=== PATIENT | male | born 1975 | race Caucasian/White ===

== ENCOUNTER 2016-06-13 11:33 | Emergency (ER) | payer BC, OTHER ==
[2016-06-13 13:00] VITALS: BP 151/94
--- NOTE | 2016-06-13 14:51 | UC ---
Lower Extremity/Ankle HPI - HPI Summary HPI Summary: complaint of right great toe pain after dropping a large peice of steel onto right great yesterday bleed a lot from atround toenail complaint of constant aching pain pain radiates into the 2nd toe sometimes movement increases the pain hasn't taken any medications for pain - History of Current Complaint Chief Complaint: UCLowerExtremity Stated Complaint: TOE INJURY Time Seen by Provider: 06/13/16 14:36 Hx Obtained From: Patient Aggravating Factor(s): Ambulation Alleviating Factor(s): Rest Able to Bear Weight: Yes Related History: Occupational Injury - Allergies/Home Medications Allergies/Adverse Reactions: Allergies Allergy/AdvReac Type Severity Reaction Status Date / Time No Known Allergies Allergy Verified 06/13/16 12:53 PMH/Surg Hx/FS Hx/Imm Hx Previously Healthy: Yes Endocrine History Of: Denies: Diabetes Cardiovascular History Of: Denies: Hypertension, Pacemaker/ICD Respiratory History Of: Denies: Asthma GI/ History Of: Denies: Renal Disease - Surgical History Surgical History: Yes Surgery Procedure, Year, and Place: R knee - Family History Known Family History: Positive: None Negative: Cardiac Disease, Hypertension, Diabetes - Social History Occupation: Employed Full-time Lives: With Family Alcohol Use: Weekly Alcohol Amount: 24 PER WEEK Substance Use Type: None Smoking Status (MU): Light Every Day Tobacco Smoker Type: Cigarettes Amount Used/How Often: 6 cigarettes daily Have You Smoked in the Last Year: Yes - Immunization History Most Recent Tetanus Shot: 11/2012 Review of Systems Constitutional: Negative Skin: Bruising - right grerat toe Eyes: Negative ENT: Negative Respiratory: Negative Cardiovascular: Negative Gastrointestinal: Negative Genitourinary: Negative Motor: Negative Neurovascular: Negative Musculoskeletal: Other: - right great toe Neurological: Negative Psychological: Negative All Other Systems Reviewed And Are Negative: Yes Physical Exam Triage Information Reviewed: Yes Appearance: No Pain Distress, Well-Nourished Vital Signs: Initial Vital Signs Temp 98.2 F 06/13/16 12:53 Pulse 83 06/13/16 12:53 Resp 16 06/13/16 12:53 BP 151/94 06/13/16 12:53 Pulse Ox 100 06/13/16 12:53 Vital Signs Reviewed: Yes Eyes: Positive: Conjunctiva Clear ENT: Positive: Pharynx normal, TMs normal. Negative: Nasal congestion Neck: Positive: No Lymphadenopathy Respiratory: Positive: Lungs clear, Normal breath sounds, No respiratory distress Cardiovascular: Positive: RRR, No Murmur Abdomen Description: Positive: Nontender, Soft Bowel Sounds: Positive: Present Musculoskeletal: Positive: Other: - right great toe- tenderness and edema throughout- open wound under toenail- able to bend toe no pain in metacarpals Neurological: Positive: Alert Psychological Exam: Normal Skin: Positive: Other - small abrasion underneath toenail toenail still attached in the middle Lower Extremity Course/Dx - Differential Dx/Diagnosis Differential Diagnosis/HQI/PQRI: Contusion, Fracture (Open), Sprain, Strain Provider Diagnoses: right great toe contusion, small abrasion Discharge - Discharge Plan Condition: Stable Disposition: HOME Prescriptions: Cephalexin CAP* [Keflex CAP*] 500 mg PO TID #30 cap Patient Education Materials: Foot Contusion (ED), Abrasion (ED) Referrals: Lalitha Magallon NP [Primary Care Provider] - Additional Instructions: Start antibiotic as directed Increase fluids and rest Take acetaminophen or ibuprofen for fever or pain Please review your discharge instructions. If your symptoms do not improve please call your primary care provider or return to urgent care Addendum entered and electronically signed by Lois Angeles NP 06/13/16 15:47: Addendum Addendum: discussed case and reviewed x-ray which is negative for fracture and dislocation with Dr Angeles Addendum entered and electronically signed by Tasneem Angeles MD 06/24/16 08:26: Addendum Addendum: dx: crush injury Addendum entered and electronically signed by Tasneem Angeles MD 06/26/16 22:19: Addendum Addendum: dx: crush injury Addendum entered and electronically signed by Tasneem Angeles MD 06/30/16 07:23: Addendum Addendum: xray toe negative; diagnosis: toe injury Addendum entered and electronically signed by Tasneem Angeles MD 06/30/16 07:24: Addendum Addendum: signed by
[2016-06-13] MEDS ORDERED: Ibuprofen TAB* 400 MG PO ONE (14:52)
--- NOTE | 2016-06-13 15:51 | RAD ---
HISTORY: Trauma to right toe COMPARISONS: None VIEWS: 3, Frontal, lateral, and oblique views of the first digit of the right foot FINDINGS: BONE DENSITY: Normal. BONES: There is no displaced fracture. JOINTS: There is mild osteoarthritis of the first MTP joint. ALIGNMENT: There is no dislocation. SOFT TISSUES: Unremarkable. OTHER FINDINGS: None. IMPRESSION: OSTEOARTHRITIS. NO ACUTE OSSEOUS INJURY. IF SYMPTOMS PERSIST, RECOMMEND REPEAT IMAGING.
--- NOTE | 2016-06-20 15:07 | PN ---
Progress Note - Progress Note Note: Update to medical evaluation Keflex was listed in home meds - I noticed a 06/13 urgent care visit for toe injury where the meds were given, and based on pill count, determined it would be appropriate to order another 3-4 days Keflex. Leon said it is feeling better and on examination (RT great toe) there is some apparent scab at the base of the nail, and coloration that appears physiologic.
[2016-06-20] MEDS ORDERED: Cephalexin CAP* 500 MG PO SCH (16:00)
== END 2016-06-13 15:52 | disposition home or self-care (01) ==
LOC: UCCORT 11:33
DX: S90.111A Contusion of right great toe without damage to nail, initial encounter (principal); F10.99 Alcohol use, unspecified with unspecified alcohol-induced disorder; F17.210 Nicotine dependence, cigarettes, uncomplicated; M19.071 Primary osteoarthritis, right ankle and foot; W20.8XXA Other cause of strike by thrown, projected or falling object, initial encounter; Y92.9 Unspecified place or not applicable; Y99.0 Civilian activity done for income or pay
CPT/HCPCS: 99213; A9270-GY; G0463

== ENCOUNTER 2016-06-20 01:02 | Inpatient (IN) | payer BC ==
[2016-06-20] MEDS ORDERED: LORazepam INJ* 2 MG/ML 1 ML VIAL ONE (01:14)
[2016-06-20] MEDS ORDERED: LORazepam INJ* 2 MG/ML 1 ML VIAL IM ONE (01:14)
[2016-06-20 01:33] LABS: Urine Bilirubin Negative (Negative); Urine Glucose 3+(>=500 mg/dL) (Negative); Urine Nitrite Negative (Negative)
[2016-06-20 01:43] LABS: Hematocrit 48 % (42-52); Hemoglobin 16.3 g/dl (14.0-18.0); Mean Corpuscular HGB Conc 34 g/dl (31-36); Mean Corpuscular Hemoglobin 30 pg (27-31); Mean Corpuscular Volume 89 fL (80-94); Mean Platelet Volume 7 um3 (7.4-10.4); Red Blood Count 5.44 10^6/ul (4.0-5.4); Red Cell Distribution Width 13 % (10.5-15); White Blood Count 15.7 10^3/ul (3.5-10.8)
[2016-06-20 01:49] LABS: Benzodiazepine Urine Screen None Detected (None Detect)
[2016-06-20 01:57] LABS: ALT 60 U/L (7-52); AST 60 U/L (13-39); Albumin 5.1 g/dL (3.2-5.2); Alkaline Phosphatase 86 U/L (34-104); Anion Gap 9 mmol/L (2-11); BUN/Creatinine Ratio 9.1 (8-20); Blood Urea Nitrogen 9 mg/dL (6-24); CO2 Carbon Dioxide 23 mmol/L (22-32); Chloride 96 mmol/L (101-111); EGFR African American 108.2 (>60); EGFR Non-African American 84.2 (>60); Glucose 113 mg/dL (70-100); Potassium 3.6 mmol/L (3.5-5.0); Sodium 128 mmol/L (133-145); Total Protein 8.1 g/dL (6.4-8.9)
[2016-06-20 03:32] LABS: Acetaminophen < 15 mcg/mL; Alcohol < 10 mg/dL (<10); Salicylate < 2.50 mg/dL (<30); TSH (Thyroid Stimulating Horm) 0.29 mcIU/mL (0.34-5.60)
--- NOTE | 2016-06-20 05:29 | ED ---
Aditya Villa Billy, scribed for Ace Christine MD on 06/20/16 at 0142 . Psychiatric Complaint - HPI Summary HPI Summary: Patient is a 41 year-old male coming to [facility] for [facility]. Per EMS, patient has SI tonight. However, here in the ED, patient does not respond to questions directly and is generally uncooperative. - History Of Current Complaint Chief Complaint: EDMentalHealth Time Seen by Provider: 06/20/16 01:14 Hx Obtained From: Patient Hx From Patient Unobtainable Due To: Other - vague and uncooperative Onset/Duration: Gradual Onset Timing: Constant Severity Initially: Moderate Severity Currently: Moderate Has Suicidal: Reports: Thoughts - Allergies/Home Medications Allergies/Adverse Reactions: Allergies Allergy/AdvReac Type Severity Reaction Status Date / Time No Known Allergies Allergy Verified 06/13/16 12:53 PMH/Surg Hx/FS Hx/Imm Hx Endocrine/Hematology History: Denies: Hx Diabetes Cardiovascular History: Denies: Hx Hypertension, Hx Pacemaker/ICD, Other Cardiovascular Problems/ Disorders Respiratory History: Denies: Hx Asthma, Other Respiratory Problems/Disorders GI History: Denies: Other GI Disorders History: Denies: Hx Renal Disease Musculoskeletal History: Denies: Other Musculoskeletal History Sensory History: Denies: Hx Contacts or Glasses, Hx Hearing Aid Opthamlomology History: Denies: Hx Contacts or Glasses Neurological History: Comment Only: Other Neuro Impairments/Disorders - ADD Psychiatric History: Denies: Hx Panic Disorder - Surgical History Surgery Procedure, Year, and Place: R knee Hx Anesthesia Reactions: No Infectious Disease History: No Infectious Disease History: Denies: Traveled Outside the [place] in Last 30 Days - Family History Known Family History: Negative: Cardiac Disease, Hypertension, Diabetes - Social History Alcohol Use: Weekly Alcohol Amount: 24 PER WEEK Substance Use Type: Reports: None Substance Use Comment - Amount & Last Used: meth Hx Tobacco Use: Yes Smoking Status (MU): Light Every Day Tobacco Smoker Type: Cigarettes Amount Used/How Often: 6 cigarettes daily Have You Smoked in the Last Year: Yes Review of Systems Negative: Fever Positive: Other - SI All Other Systems Reviewed And Are Negative: No - Comments Additional Review of Systems Comments: Patient is not responding to questions directly, full ROS not obtained. Physical Exam Triage Information Reviewed: Yes Vital Signs On Initial Exam: Initial Vitals Temp Pulse Resp BP Pulse Ox 97.6 F 146 22 0/0 100 06/20/16 01:05 06/20/16 01:05 06/20/16 01:05 06/20/16 01:05 06/20/16 01:05 Vital Signs Reviewed: Yes Appearance: Positive: Well-Appearing Skin: Positive: Warm Eyes: Positive: SHERLEY ENT: Positive: Hearing grossly normal Respiratory/Lung Sounds: Positive: Breath Sounds Present Cardiovascular: Positive: Normal Abdomen Description: Positive: Nontender, Soft Bowel Sounds: Positive: Present Musculoskeletal: Positive: Strength/ROM Intact - [place] Coma Scale Coma Scale Total: 15 Diagnostics - Vital Signs Vital Signs Temp Pulse Resp BP Pulse Ox 06/20/16 01:18 24 06/20/16 01:05 97.6 F 146 22 0/0 100 - Laboratory Lab Results: Lab Results 06/20/16 Range/Units 01:25 Urine Color Yellow Urine Appearance Clear Urine pH 5.0 (5-9) Ur Specific [place] 1.008 L (1.010-1.030) Urine Protein Negative (Negative) Urine Ketones Negative (Negative) Urine Blood Negative (Negative) Urine Nitrate Negative (Negative) Urine Bilirubin Negative (Negative) Urine Urobilinogen Negative (Negative) Ur Leukocyte Esterase Negative (Negative) Urine Glucose 3+(>=500 mg/dl) H (Negative) Result Diagrams: 06/20/16 01:35 06/20/16 01:35 Lab Statement: Any lab studies that have been ordered have been reviewed, and results considered in the medical decision making process. Course/Dx - Differential Dx/Clinical Impression Provider Diagnosis: Psychosis - Physician Notifications Instructed by Provider To: Admit As Inpatient Discharge - Discharge Plan Condition: Fair Disposition: ADMITTED TO [facility] documentation as recorded by the Aditya ocampo Billy accurately reflects the service I personally performed and the decisions made by , Ace Christine MD.
[2016-06-20] MEDS ORDERED: Influenza VAC *QUAD* 2016-17* 0.5 ML SYRINGE IM ONE (10:00)
[2016-06-20] MEDS ORDERED: Al Hydrox/Mg Hydrox/Simet LIQ* 30 ML UDC PO PRN (12:58)
[2016-06-20] MEDS ORDERED: Acetaminophen TAB* 325 MG PO PRN (12:58)
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
[2016-06-20] MEDS: risperiDONE TAB* 1 MG PO SCH ×2 (14:01→21:14)
[2016-06-20] MEDS: Nicotine Inhaler* 10 MG AMP INH PRN ×3 (14:01→18:05)
[2016-06-20] MEDS: Mouth Piece, Nicotine* 1 EACH CARTRIDGE INH ONE ×2 (14:02→16:04)
[2016-06-20] MEDS: Nicotine PATCH 21 MG/24 HR* PATCH TRANSDERM SCH (14:54)
[2016-06-20] MEDS: Nicotine GUM* 2 MG PO PRN ×2 (16:04→18:05)
[2016-06-20] MEDS: Mouth Piece, Nicotine* 1 EACH CARTRIDGE ONE ×2 (16:35→16:36)
[2016-06-21] MEDS: Nicotine PATCH 21 MG/24 HR* PATCH TRANSDERM SCH (08:38)
[2016-06-21] MEDS: risperiDONE TAB* 1 MG PO SCH ×2 (08:38→22:30)
[2016-06-21] MEDS: Vitamin THERAPEUTIC TAB PO SCH (08:38)
[2016-06-21] MEDS: Nicotine GUM* 2 MG PO PRN ×2 (08:52→11:54)
[2016-06-21 10:06] LABS: Hematocrit 45 % (42-52); Hemoglobin 14.9 g/dl (14.0-18.0); Mean Corpuscular HGB Conc 33 g/dl (31-36); Mean Corpuscular Hemoglobin 30 pg (27-31); Mean Corpuscular Volume 90 fL (80-94); Mean Platelet Volume 7 um3 (7.4-10.4); Red Blood Count 4.98 10^6/ul (4.0-5.4); Red Cell Distribution Width 13 % (10.5-15); White Blood Count 7.5 10^3/ul (3.5-10.8)
[2016-06-21 10:32] LABS: Albumin 4.1 g/dL (3.2-5.2); BUN/Creatinine Ratio 12.2 (8-20); Calcium 9.7 mg/dL (8.6-10.3); EGFR African American 109.5 (>60); EGFR Non-African American 85.1 (>60); Globulin 2.6 g/dL (2-4); Potassium 4.1 mmol/L (3.5-5.0); Total Bilirubin 0.5 mg/dL (0.2-1.0); Total Protein 6.7 g/dL (6.4-8.9)
[2016-06-21 10:41] LABS: TSH (Thyroid Stimulating Horm) 0.8 mcIU/mL (0.34-5.60)
--- NOTE | 2016-06-21 15:56 | PN ---
Subjective - Subjective Service Type: 08151 Hosp care 15 min low complexity Subjective: The patient reports that he is tolerating his meds well and feeling better rested than admission. He admits that his thoughts are still "a little loopy." No overt delusions were displayed by the patient. He denies SI or HI. Objective - Appearance Appearance: Healthy Appearing Dysmorphic Features: No Hygiene: Normal Grooming: Well Kept - Behavior Psychomotor Activities: Normal Exhibits Abnormal Movement: No - Attitude and Relatedness Attitude and Relatedness: Cooperative Eye Contact: Fair - Speech Quality: Unpressured Latencies: Normal Quantity: Terse - Mood Patient's Decription of Mood: "Okay" - Affect Observed Affect: Fair Affect Consistent with: Euthymia - Thought Process Patient's Thought Process: Coherent Thought Content: Yes Paranoid Ideation, No Passive Wish, No Suicidal Planning, No Homicidal Ideation - Sensorium Experiencing Hallucinations: No, Sensorium is Clear Type of Hallucinations: Visual: No, Auditory: No, Command: No - Level of Consciousness Level of Consciousness: Alert Orientation: Yes Intact, Yes Orientated to Time, Yes Orientated to Place, Yes Orientated to Person - Impulse Control Impulse Control: Poor - Insight and Judgement Insight and Judgement: Impaired - Group Participation Particating in Group Activities: No - Medication Management Medication Management Adherence: Yes Assessment - Assessment Merits Inpatient Hospitalization: For Immediate Safety, For Stabilization Inpatient DSM-IV Dx: Unspecified Psychotic DO Clinical Impression: 41 y.o. single, white male with a history of amphetamine abuse admitted due to SI and paranoid ideation. Patient has access to weapons and was talking in our ER about using them. Plan - Plan Treatment Plan: Name: RUCHI COLEY Birthdate: 1975 [id number] Continue risperidone therapy. Will try to convince patient to consider substance abuse rehab. Need to account for patient's gun access. Continued Medication Management: Start Medication Medications: Current Medications Acetaminophen (Tylenol Tab*) 650 mg PO Q4H PRN PRN Reason: for pain; or Temp >101 F Al Hydrox/Mg Hydrox/Simethicone (Maalox Plus*) 30 ml PO Q4H PRN PRN Reason: INDIGESTION Multivitamins (Theragran Tab*) 1 tab PO DAILY VERA Last Admin: 06/21/16 08:38 Dose: 1 tab Nicotine (Nicotine Patch 21 Mg/24 Hr*) 1 patch TRANSDERM DAILY@0800 [facility] Last Admin: 06/21/16 08:38 Dose: 1 patch Nicotine (Nicotine Inhaler*) 10 mg INH Q2H PRN PRN Reason: CRAVING Last Admin: 06/20/16 18:05 Dose: 10 mg Nicotine Polacrilex (Nicotine Gum*) 2 mg PO Q2H PRN PRN Reason: CRAVING Last Admin: 06/21/16 11:54 Dose: 2 mg Risperidone (Risperdal*) 1 mg PO BID [facility] Last Admin: 06/21/16 08:38 Dose: 1 mg - Discharge Plan Discharge Plan: Inpatient Hospitalization
[2016-06-22] MEDS: Vitamin THERAPEUTIC TAB PO SCH (09:53)
[2016-06-22] MEDS: Nicotine PATCH 21 MG/24 HR* PATCH TRANSDERM SCH (09:53)
[2016-06-22] MEDS: risperiDONE TAB* 1 MG PO SCH ×2 (09:53→20:39)
[2016-06-23] MEDS: Vitamin THERAPEUTIC TAB PO SCH (09:36)
[2016-06-23] MEDS: risperiDONE TAB* 1 MG PO SCH ×2 (09:36→20:16)
[2016-06-23] MEDS: Nicotine PATCH 21 MG/24 HR* PATCH TRANSDERM SCH (09:37)
--- NOTE | 2016-06-23 20:07 | PN ---
Subjective - Subjective Subjective: Ruchi remains seclusive to his room but asserts that paranoia is subsiding. He reports "sleeping a lot," denies any other bothersome psychiatric complaints or side effects from prescribed meds. He relates that his parents have removed his guns from his house. Patient told there are two patients on the unit (did not disclose their names) who have tested positive for Influenza A and I am recommending taking Tamiflu as a prophylactic measure. I made it clear this was optional. He declined the treatment after hearing of the indications, risks, benefits and alternatives. Objective - Appearance Appearance: Well Developed/Nourished Dysmorphic Features: No Hygiene: Normal Grooming: Well Kept - Behavior Psychomotor Activities: Normal Exhibits Abnormal Movement: No - Attitude and Relatedness Attitude and Relatedness: Guarded Eye Contact: Fair - Speech Quality: Unpressured Latencies: Normal Quantity: Terse - Mood Patient's Decription of Mood: "Okay" - Affect Observed Affect: Non-labile Affect Consistent with: Dysphoria - Thought Process Patient's Thought Process: Coherent, Impoverished Thought Content: Yes Paranoid Ideation, No Passive Wish, No Suicidal Planning, No Homicidal Ideation - Sensorium Experiencing Hallucinations: No, Sensorium is Clear - Level of Consciousness Level of Consciousness: Alert Orientation: Yes Intact - Impulse Control Impulse Control: Intact - Insight and Judgement Insight and Judgement: Impaired - Group Participation Particating in Group Activities: Yes - Medication Management Medication Management Adherence: Yes Assessment - Assessment Merits Inpatient Hospitalization: [facility], For Discharge Planning Inpatient DSM-IV Dx: Unspecified Psychotic DO Clinical Impression: ongoing impairing psychotic symptoms. He needs continued admission for stabilization. Plan - Plan Treatment Plan: Name: RUCHI COLEY Birthdate: 1975 [id number] Continued Medication Management: Continue Outpt Medication Medications: Current Medications Acetaminophen (Tylenol Tab*) 650 mg PO Q4H PRN PRN Reason: for pain; or Temp >101 F Al Hydrox/Mg Hydrox/Simethicone (Maalox Plus*) 30 ml PO Q4H PRN PRN Reason: INDIGESTION Multivitamins (Theragran Tab*) 1 tab PO DAILY [facility] Last Admin: 06/23/16 09:36 Dose: 1 tab Nicotine (Nicotine Patch 21 Mg/24 Hr*) 1 patch TRANSDERM DAILY@0800 [facility] Last Admin: 06/23/16 09:37 Dose: 1 patch Nicotine (Nicotine Inhaler*) 10 mg INH Q2H PRN PRN Reason: CRAVING Last Admin: 06/20/16 18:05 Dose: 10 mg Nicotine Polacrilex (Nicotine Gum*) 2 mg PO Q2H PRN PRN Reason: CRAVING Last Admin: 06/21/16 11:54 Dose: 2 mg Risperidone (Risperdal*) 1 mg PO BID [facility] Last Admin: 06/23/16 09:36 Dose: 1 mg - Discharge Plan Discharge Plan: Outpatient Follow Up Outpatient Program: [facility]
[2016-06-24] MEDS: Nicotine PATCH 21 MG/24 HR* PATCH TRANSDERM SCH (08:41)
[2016-06-24] MEDS: risperiDONE TAB* 1 MG PO SCH ×2 (08:41→20:36)
[2016-06-24] MEDS: Vitamin THERAPEUTIC TAB PO SCH (08:41)
--- NOTE | 2016-06-24 14:59 | PN ---
Subjective - Subjective Service Type: 76440 Hosp care 15 min low complexity Subjective: The patient is feeling better and is denying AH or paranoid thinking. He denies thoughts to harm himself or others. I spoke with his mother, Maria Isabel Coley, who indicates that he will coming to live with them following discharge and she feels she's ready. She is asked about firearms, including some belonging to the patient, that are stored in her home. She notes that they are all locked up and secured and that only Ruchi' father has access to them. He acknowledges that alcohol and drugs are ruining his life and wants to dedicate himself to an AA/NA lifestyle. Objective - Appearance Appearance: Well Developed/Nourished Dysmorphic Features: No Hygiene: Normal Grooming: Well Kept - Behavior Psychomotor Activities: Normal Exhibits Abnormal Movement: No - Attitude and Relatedness Attitude and Relatedness: Cooperative Eye Contact: Fair - Speech Quality: Unpressured Latencies: Normal Quantity: Appropriate - Mood Patient's Decription of Mood: "Good" - Affect Observed Affect: Fair Affect Consistent with: Euthymia - Thought Process Patient's Thought Process: Coherent Thought Content: No Passive Wish, No Suicidal Planning, No Homicidal Ideation, No Paranoid Ideation - Sensorium Experiencing Hallucinations: No, Sensorium is Clear Type of Hallucinations: Visual: No, Auditory: No, Command: No - Level of Consciousness Level of Consciousness: Alert Orientation: Yes Intact, Yes Orientated to Time, Yes Orientated to Place, Yes Orientated to Person - Impulse Control Impulse Control: Tenuous - Insight and Judgement Insight and Judgement: Fair - Group Participation Particating in Group Activities: Yes - Medication Management Medication Management Adherence: Yes Assessment - Assessment Merits Inpatient Hospitalization: [facility], Pending Safe DC Plan Inpatient DSM-IV Dx: Unspecified Psychotic DO Clinical Impression: 41 y.o. single, white male with a history of amphetamine abuse admitted due to SI and paranoid ideation. Patient has access to weapons and was talking in our ER about using them. Plan - Plan Treatment Plan: Name: RUCHI COLEY Birthdate: 1975 [id number] The patient is improving on risperidone therapy. His weapons have been accounted for and he appears to be getting nearer to discharge. MH and substance abuse follow ups need to be put in place. Continued Medication Management: Continue Outpt Medication Medications: Current Medications Acetaminophen (Tylenol Tab*) 650 mg PO Q4H PRN PRN Reason: for pain; or Temp >101 F Al Hydrox/Mg Hydrox/Simethicone (Maalox Plus*) 30 ml PO Q4H PRN PRN Reason: INDIGESTION Multivitamins (Theragran Tab*) 1 tab PO DAILY [facility] Last Admin: 06/24/16 08:41 Dose: 1 tab Nicotine (Nicotine Patch 21 Mg/24 Hr*) 1 patch TRANSDERM DAILY@0800 [facility] Last Admin: 06/24/16 08:41 Dose: 1 patch Nicotine (Nicotine Inhaler*) 10 mg INH Q2H PRN PRN Reason: CRAVING Last Admin: 06/20/16 18:05 Dose: 10 mg Nicotine Polacrilex (Nicotine Gum*) 2 mg PO Q2H PRN PRN Reason: CRAVING Last Admin: 06/21/16 11:54 Dose: 2 mg Risperidone (Risperdal*) 1 mg PO BID [facility] Last Admin: 06/24/16 08:41 Dose: 1 mg - Discharge Plan Discharge Plan: Outpatient Follow Up
[2016-06-24] MEDS: Nicotine GUM* 2 MG PO PRN (15:21)
[2016-06-25 07:50] VITALS: BP 125/74
[2016-06-25] MEDS: Vitamin THERAPEUTIC TAB PO SCH (08:34)
[2016-06-25] MEDS: Nicotine PATCH 21 MG/24 HR* PATCH TRANSDERM SCH (08:34)
[2016-06-25] MEDS: risperiDONE TAB* 1 MG PO SCH (08:34)
[2016-06-25] MEDS: Nicotine GUM* 2 MG PO PRN (09:52)
--- NOTE | 2016-06-25 11:10 | PN ---
MHU: Group Therapy Note - Service Type Service Type: 16817 Group Psychotherapy - Cognitive Behavioral Group Therapy ( CBT):Patient was attentive and participatory in CBT programming this morning, and remained in good behavioral control. Patient expressed positive insights regarding relevant treatment interventions and goals.
--- NOTE | 2016-06-26 01:04 | DS ---
DISCHARGE SUMMARY: DATE OF ADMISSION: 06/20/16 DATE OF DISCHARGE: 06/25/16 DISCHARGE DIAGNOSES: [place] I: Amphetamine-induced psychotic disorder, amphetamine use disorder, alcohol use disorder. [place] II: Deferred. [place] III: Infection of right great toe. [place] IV: Moderate primary support stressors. [place] V: At the time of admission was 42 and at the time of discharge was 62. CONDITION AT THE TIME OF DISCHARGE: Stable. The patient appears to be responding appropriately to reality. The amphetamines he was abusing have now cleared out of his system and there is no further evidence of psychosis. In fact, he has been visited several times by his parents, who indicate that he is at his baseline psychiatrically and the patient is seeking discharge. His family, whom I have spoken to over the phone is very much in support of his discharge and he is invited to stay with them at least temporarily until he can make new arrangements for his own housing status. The patient is denying suicidal or homicidal ideations. We have addressed the issue of access to firearms through his parents who indicate that his weapons are all locked up and that in safe at his parents' house and that only his father knows the way to get into the safe. 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 Furthermore, he is very much willing to follow up with outpatient substance abuse and mental health services in the community. MENTAL STATUS EXAMINATION: At the time of discharge, this is a strongly built middle-aged, male, who is wearing blue patient's scrubs. He is well kempt and casually groomed. He is easy to establish a rapport with. He is calm and cooperative. Speech reveals normal rate, tone and volume. Mood is euthymic with a full affect. Thought process is linear and goal directed. Thought content is significant for his desire to return to work and be discharged from the hospital. He is denying suicidal or homicidal ideations. He is expressing a commitment to an abstinent lifestyle in terms of drugs and alcohol. Insight and judgment are good given his willingness to follow up with outpatient mental health and substance abuse treatment. Cognitively, he is awake and alert with what would appear to be an average intellect. DISCHARGE INSTRUCTIONS: To the patient are as follows: A. Medications: He is taking Risperdal 1 mg p.o. b.i.d. B. Diet: Regular. C. Activities: As tolerated. The patient is strongly encouraged to abstain from tobacco products; however, he is declining continuation of nicotine replacement therapy indicating his preference at this time to continue smoking cigarettes. D. Followup care: The patient will be following up with psychiatric nurse practitioner, Tyra Orr, and also he will be seeing private psychologist, Naresh Razo, in the community. He has also received followup appointments for [facility] for both mental health group programming as well as substance abuse services. At his request, he has received a list of AA and NA meeting both in [place] and [facility], which he promises to follow through with. HOSPITAL COURSE: Part A: Reason for admission: The patient is a 41-year-old recently employed and domiciled male with a history of substance abuse disorder , apparent psychosis and previous incarceration who was admitted after coming to the emergency room by car due to concerns of his friends that he had made suicidal statements. The patient reported having paranoid tendencies when he uses amphetamines and states that he has been using them for approximately 20 years. He appeared to endorse some ideas of reference and the idea that people could read his mind. He also seemed to express guilty delusions that he has hurt a lot of people and that he was "going to go to the big house." He kept talking about how he had mess things up and made a lot of mistakes, but was vague to the point of incoherence as to what he was actually doing to deserve this guilt. He seemed to anticipate that the psychiatric hospitalization was leading to a transfer to penitentiary. At times, he was open to care and wanted help and recognized that some of his thoughts were paranoid and loopy and he did ultimately express an interest in inpatient hospitalization. The patient did report feeling depressed, but he denied anhedonia and could not really give a longitudinal history in terms of how long he had been feeling down. He said periodically he would get depressed, but he would always snap out of it and he denied manic symptoms. He further denied hearing voices or having other hallucinations. The patient did report access to firearms at home, but denied thinking of using them and he reported feeling anxious and upset about his situation, but could not identify the things that he typically feels anxious about. The patient did report abusing both Adderall and crystal methamphetamine. He also indicated that he drinks a lot and when he is on amphetamines, the alcohol has very little effect on him. It is notable that the patient had thinking that was clearly impaired and he showed signs of internal preoccupation as though reacting to unknown internal stimuli. It is also notable that he apparently called some of his friends to "say goodbye" implying a suicide attempt and his family was quite concerned about him. Part B: Psychiatric treatment rendered: The patient was admitted to the adult inpatient psychiatric unit where he was placed on q.30-minute checks for his own safety. We immediately discontinued the amphetamine that he had been taking as an outpatient and replaced it with a trial of Risperdal with a low dose of 1 mg p.o. b.i.d. The patient was an active participant in groups. He was social on the milieu, seemed to make friends with peers readily. It appears at this point that the patient has broken up with his girlfriend and therefore not welcomed to return to their apartment. I spoke with his mother, Maria Isabel Rashid, who indicated that it is fine for him to stay with his parents. I asked them about the firearms and they indicated that these are locked up in his father's safe and only his father has access to them. They felt after several days that he was back to his baseline and it does appear at this point that he shows no further sign of psychotic functioning quite to the contrary he has been open and very much agreeable with treatment and he is willing to follow up with outpatient provider in [facility] to receive both substance abuse and mental health treatment. Specifically, he is interested in attending AA and NA meetings, which he was given information about at the time of discharge. The only medical complication we had was an infected toe, which he was already receiving Keflex for. We did continue and ultimately finished this course of treatment and he is no longer on antibiotics at this time. Right now, he is steadfastly denying thoughts of hurting himself or others. We feel that his reality testing is intact and we feel that he could safely be discharged and treated in a much less restrictive setting. Therefore, we are discharging Mr. Leon Rashid to outpatient care. [id number]/[facility] #: [id number] [facility]ITALPhil
== END 2016-06-25 16:30 | disposition home or self-care (01) | DRG 775 ==
LOC: ED 01:02 → BSU 08:40
PROVIDERS: ADMIT Psychiatry & Neurology Psychiatry; ATTEND Psychiatry & Neurology Psychiatry
DX: F15.159 Other stimulant abuse with stimulant-induced psychotic disorder, unspecified (principal); F10.10 Alcohol abuse, uncomplicated; F17.210 Nicotine dependence, cigarettes, uncomplicated; Z79.899 Other long term (current) drug therapy
CPT/HCPCS: 36415; 80053; 80307; 80320; 80329; 81003; 84443; 85025; 90686; 90853; 99222; 99231; 99238; A9270-GY; G0480; J2060

== ENCOUNTER 2018-01-13 21:03 | Emergency (ER) | payer BC, OTHER ==
[2018-01-13 21:19] VITALS: BP 126/79
[2018-01-13] MEDS ORDERED: Tetracaine 0.5% OPTH.SOL 4 ML* 1 DROP BTL ONE (22:01)
[2018-01-13] MEDS: Fluorescein Sod TOPICAL 0.6* 0.6 MG TEST OPHTHALMIC ONE ×2 (22:07→22:35)
[2018-01-13] MEDS ORDERED: Tetan/Diph/Pertus SYR(Tdap)* 0.5 ML SYR(BOOSTRIX) use SYR IM ONE ×2 (22:31→22:34)
[2018-01-13] MEDS ORDERED: Ciprofloxacin 0.3% OPTH.SOL* 2.5 ML BTL LEFT EYE ONE (22:31)
[2018-01-13] MEDS ORDERED: Fluorescein Sod TOPICAL 0.6* 0.6 MG TEST OPHTHALMIC ONE ×2 (22:31→22:32)
[2018-01-13] MEDS ORDERED: Ciprofloxacin 0.3% OPTH.SOL* 2.5 ML BTL ONE (22:33)
--- NOTE | 2018-01-13 22:43 | UC ---
Eye Complaint HPI - HPI Summary HPI Summary: 42 yo gentleman c/o L eye pain since this afternoon, piece of metal flew into his eye while at work this afternoon. Still feels like something is in it. Hx eye injuries. Has eye doctor, but can't recall name (in [place]). Able to see out of eye ok but painful to open and close eye - History of Current Complaint Chief Complaint: UCEye Stated Complaint: EYE INJURY Time Seen by Provider: 01/13/18 22:03 Hx Obtained From: Patient, Family/Sustainability Officer Pain Intensity: 3 - Allergies/Home Medications Allergies/Adverse Reactions: Allergies Allergy/AdvReac Type Severity Reaction Status Date / Time No Known Allergies Allergy Verified 06/13/16 12:53 Home Medications: Home Medications Dextroamphetamine/Amphetamine [Adderall 30 mg-] 01/13/18 [History] PMH/Surg Hx/FS Hx/Imm Hx Previously Healthy: Yes - see hpi - Surgical History Surgical History: Yes Surgery Procedure, Year, and Place: R knee-meniscus - Family History Known Family History: Positive: None Negative: Cardiac Disease, Hypertension, Diabetes - Social History Alcohol Use: Daily Alcohol Amount: 24 PER WEEK Substance Use Type: None Substance Use Comment - Amount & Last Used: meth Smoking Status (MU): Heavy Every Day Tobacco Smoker Type: Cigarettes Amount Used/How Often: 6 cigarettes daily Have You Smoked in the Last Year: Yes - Immunization History Most Recent Influenza Vaccination: not this season Most Recent Tetanus Shot: 11/2012 Most Recent Pneumonia Vaccination: none Review of Systems Constitutional: Negative Skin: Other - see hpi Eyes: Photophobia, Other - see hpi ENT: Negative Respiratory: Negative Cardiovascular: Negative Gastrointestinal: Negative Genitourinary: Negative Motor: Negative Neurovascular: Negative Musculoskeletal: Negative Neurological: Negative Psychological: Negative Is Patient Immunocompromised?: No All Other Systems Reviewed And Are Negative: Yes Physical Exam Triage Information Reviewed: Yes Appearance: Well-Nourished Vital Signs: Initial Vital Signs Temp 98.0 F 01/13/18 21:14 Pulse 92 01/13/18 21:14 Resp 16 01/13/18 21:14 BP 126/79 01/13/18 21:14 Pulse Ox 99 01/13/18 21:14 Vital Signs Reviewed: Yes Eye Exam: Other - Left corneal abrasion approx 3:30. Irregular shape and depth. Approx 0.3mm length. Lids everted, without visible fb. Flourescein stain. Facial expressions symmetric. PERRLA EOMI Able to see out of left eye ENT Exam: Normal Neck exam: Normal Neck: Positive: Supple Respiratory Exam: Normal Cardiovascular Exam: Normal Abdominal Exam: Normal Musculoskeletal Exam: Normal Neurological Exam: Normal - grossly normal, see eye exam for details. 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 + corneal abrasion. Irregular. Unclear if metallic object remains, although not noted on direct surface. D/w pt - need for opthomological f/u tomorrow. He has an eye doctor in [place], has seen several times in the past. Thinks [facility], but not sure. He will call in AM. Boostrix administered today (> 5 yrs). Declines analgesic. Aware to consider ibuprofen at home. Questions as posed answered to the best of my ability. Ciprofloxacin eye drops started here (vigamox not available). - Differential Dx/Diagnosis Provider Diagnoses: Corneal abrasion. possible fb. See mdm. Discharge - Sign-Out/Discharge Documenting (check all that apply): Patient Departure All imaging exams completed and their final reports reviewed: No Studies - Discharge Plan Condition: Stable Disposition: HOME Patient Education Materials: Diphtheria/Acellular Pertussis/Tetanus Vaccine ( By injection), Corneal Abrasion (ED) Referrals: Lalitha Magallon [facility] [facility] [Primary Care Provider] - Additional Instructions: Follow up with your EYE DOCTOR within 24 hours. This is VERY IMPORTANT. You may still have a small foreign body in your cornea, although not readily visible here. Definetely corneal abrasion. Eye drops as prescribed here. Follow up with your primary care provider, per routine. Seek medical attention for worse or new problems. - Billing Disposition and Condition Condition: STABLE Disposition: Home
== END 2018-01-13 22:56 | disposition home or self-care (01) ==
LOC: UCEAST 21:03
DX: S05.02XA Injury of conjunctiva and corneal abrasion without foreign body, left eye, initial encounter (principal); W20.8XXA Other cause of strike by thrown, projected or falling object, initial encounter; Y92.9 Unspecified place or not applicable; F17.210 Nicotine dependence, cigarettes, uncomplicated; Z23 Encounter for immunization
CPT/HCPCS: 90471; 90715; 99212; A9270-GY; G0463

== ENCOUNTER 2019-04-02 20:38 | Emergency (ER) | payer OTHER ==
[2019-04-02 20:54] VITALS: BP 118/68
[2019-04-02] MEDS ORDERED: Fluorescein Sodium TOPICAL* 1 MG TEST STRIP OPHTHALMIC ONE (21:05)
[2019-04-02] MEDS ORDERED: Tetracaine 0.5% OPTH.SOL 4 ML* 1 DROP BTL RIGHT EYE ONE (21:06)
--- NOTE | 2019-04-02 21:16 | UC ---
Eye Complaint HPI - HPI Summary HPI Summary: 43 yo with right eye irritation and discomfort which began yesterday. He has mild visual blurring and an eye injection. One week ago, he recalls getting some cement grit in his eye, but no immediate tearing or redness. 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 With further discussion, he does recall that he was using clorox to clean the bathroom and used a cloth on his face which had some Clorox on it. Irritation began after that. He reports some photophobia. - History of Current Complaint Chief Complaint: UCEye Stated Complaint: EYE IRRITATION Time Seen by Provider: 04/02/19 21:04 Hx Obtained From: Patient Onset/Duration: Gradual Onset, Lasting Days - 2 Timing: Constant Severity Initially: Moderate Severity Currently: Moderate Pain Intensity: 6 Location of Injury: Sclera Character: Dull Aggravating Factor(s): Ultraviolet Exposure Alleviating Factor(s): Nothing Associated Signs And Symptoms: Positive: Drainage (Clear), Vision Impairment Right - mild decrease in right visual acuity. Negative: Drainage (Purulent) - Risk Factors Penetrating Injury Risk Factor: Grinding Globe Rupture Risk Factors: Negative Acute Glaucoma Risk Factors: Negative Optic Artery Occlusion Risk Factors: Negative - Allergies/Home Medications Allergies/Adverse Reactions: Allergies Allergy/AdvReac Type Severity Reaction Status Date / Time No Known Allergies Allergy Verified 06/05/18 09:55 PMH/Surg Hx/FS Hx/Imm Hx Previously Healthy: Yes Psychological History: Other - ADD; takes risperdal for "psychotic thoughts" - Surgical History Surgical History: Yes Surgery Procedure, Year, and Place: R knee-meniscus - Family History Known Family History: Positive: None - No hx of eye disease Negative: Cardiac Disease, Hypertension, Diabetes - Social History 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, Lives: With Family Alcohol Use: Daily Alcohol Amount: 24 PER WEEK Substance Use Type: None Substance Use Comment - Amount & Last Used: meth Smoking Status (MU): Heavy Every Day Tobacco Smoker Type: Cigarettes Amount Used/How Often: 6 cigarettes daily Have You Smoked in the Last Year: Yes - Immunization History Most Recent Influenza Vaccination: not this season Most Recent Tetanus Shot: 11/2012 Most Recent Pneumonia Vaccination: none Review of Systems All Other Systems Reviewed And Are Negative: Yes Constitutional: Positive: Negative Skin: Positive: Negative Eyes: Positive: Blurred Vision, Drainage, Eye Redness, Other. Negative: Diplopia ENT: Positive: Negative Respiratory: Positive: Negative Cardiovascular: Positive: Negative Gastrointestinal: Positive: Negative Motor: Positive: Negative Neurovascular: Positive: Negative Musculoskeletal: Positive: Negative Neurological: Positive: Negative Psychological: Positive: Anxious Is Patient Immunocompromised?: No Physical Exam Triage Information Reviewed: Yes Appearance: Well-Appearing, Pain Distress - mild Vital Signs: Initial Vital Signs Temp 98.4 F 04/02/19 20:47 Pulse 79 04/02/19 20:47 Resp 16 04/02/19 20:47 BP 118/68 04/02/19 20:47 Pulse Ox 98 04/02/19 20:47 Eye Exam: Other - DAVID, with equal pupils with good reactivity. Normal EOM. Conjunctiva is inflamed with mild clear discharge. Tetracaine applied to the right eye with relief of pain. No fluorescein uptake by the cornea or sclera. Eyes: Positive: Conjunctiva Inflamed - on the right side, Other: - No lid swelling or erythema. ENT: Positive: Pharynx normal Dental Exam: Normal Neck: Positive: Supple, Nontender, No Lymphadenopathy Respiratory: Positive: Lungs clear, Normal breath sounds Cardiovascular: Positive: RRR, No Murmur Abdominal Exam: Normal Musculoskeletal Exam: Normal Neurological Exam: Normal Psychological Exam: Normal Skin Exam: Normal Eye Complaint Course/Dx - Course Course Of Treatment: Begin cipro otic. Given history, this is most likely a chemical conjunctivitis, and he will use drops to decrease the risk of bacterial infection. Continue cool compresses to the eye. If persistent irritation and progressive photophobia, he is instructed to go to the emergency room for evaluation. - Differential Dx/Diagnosis Differential Diagnosis/HQI/PQRI: Conjunctivitis, Corneal Abrasion, Periorbital Cellulitis Provider Diagnosis: Chemical conjunctivitis of right eye Discharge ED - Sign-Out/Discharge Documenting (check all that apply): Patient Departure All imaging exams completed and their final reports reviewed: No Studies - Discharge Plan Condition: Stable Disposition: HOME Patient Education Materials: Conjunctivitis (ED) Referrals: Lalitha Magallon NP [Primary Care Provider] - Jayden Morin MD [Medical Doctor] - Additional Instructions: As we discussed, the redness in the right eye was most likely caused by the chemical irritation of the Clorox. Continue cool compresses to the eye. The use of the ciprofloxacin drops will prevent an infection, and should help to soothe the eye. IF YOUR EYE PAIN OR LIGHT SENSITIVITY WORSEN, PLEASE PROCEED TO THE EMERGENCY ROOM OVER THE WEEKEND. IF THE SYMPTOMS IMPROVE BUT DON'T RESOLVE, PLEASE CALL DR. MORIN'S OFFICE ON FRIDAY TO ARRANGE AN EVALUATION. - Billing Disposition and Condition Condition: STABLE Disposition: Home
[2019-04-02] MEDS ORDERED: Ciprofloxacin 0.3% OPTH.SOL* BTL RIGHT EYE ONE (21:26)
== END 2019-04-02 22:09 | disposition home or self-care (01) ==
LOC: UCEAST 20:38
DX: H10.211 Acute toxic conjunctivitis, right eye (principal); F41.9 Anxiety disorder, unspecified; F17.210 Nicotine dependence, cigarettes, uncomplicated
CPT/HCPCS: 99212; A9270-GY; G0463

== ENCOUNTER → 2019-05-03 10:54 | Day surgery (SDC) | payer OTHER ==
[~2019-05-03 10:54] MED LIST: Buffered Lidocaine 1% SYRIN* 1 ML/SYRINGE INTRADERM ONE; Dexamethasone IV* 4 MG/ML 1 ML (4 MG) IV SLOW PU ONE; Dexamethasone IV* 4 MG/ML 1 ML (4 MG) ONE; DiMENhydriNATE IV* 50 MG/ML VIAL IV PUSH PRN; Famotidine IV* 10 MG/ML 2 ML (20 mg) IV ONE; Famotidine IV* 10 MG/ML 2 ML (20 mg) ONE; Ketorolac INJ* 30 MG/ML 1 ML VIAL ONE; Lactated Ringers 1000 ML Bag* 1,000 ML IV SCH; Levalbuterol 0.63MG/3ML NEB* UNIT OF USE INH ONE; Lidocaine 1% w EPI 1:200,000* SDV 30 ML VIAL ONE; Lidocaine 2% PF * 5 ML VIAL ONE; Midazolam* 1 MG/ML 5 ML VIAL (5 MG) ONE; Naloxone* 0.4 MG/ML 1 ML VIAL IV PRN; Ondansetron INJ* 2 MG/ML VIAL IV PRN; Ondansetron INJ* 2 MG/ML VIAL ONE; Propofol* 10 MG/ML 20 ML BTL ONE; ROPIVACAINE 5 MG/ML 30 ML BTL (0.5%) ONE; Ropivacaine (OR use only) 2 MG/ML 10 ML ONE; ceFAZolin 2 GM in NS PREMIX(*) 2 GM/100 ML BAG IVPB ONE; fentaNYL* 50 MCG/ML 2 ML VIAL (100 MCG VIAL) IV PRN; fentaNYL* 50 MCG/ML 5 ML VIAL (250 MCG VIAL) ONE; oxyCODONE/Acetamin 5/325 MG* TAB PO PRN
[2019-05-03 17:06] VITALS: BP 140/86
--- NOTE | 2019-05-06 08:37 | OP ---
DATE OF OPERATION: 05/03/19 - [facility] DATE OF : 79 SURGEON: Lou Field MD [employer]HER: None available. PRE-OP DIAGNOSIS: Right knee medial meniscus tear. POST-OP DIAGNOSES: Right knee medial meniscus tear, lateral meniscus root fraying, and abundant scar tissue. OPERATIVE PROCEDURE: Right knee arthroscopy revision with partial medial and partial lateral meniscectomy and lysis of adhesions. COMPLICATIONS: None. ESTIMATED BLOOD LOSS: Minimal. INDICATIONS: Leon is a 43-year-old who sustained a work-related injury several years ago. He had a previous partial meniscectomy, did well for a while and then he started to have persistent symptoms. He was diagnosed with a recurrent meniscus tear. After extensive discussion of risks and benefits of operative versus nonoperative treatment, he has elected to proceed with surgical treatment. Risks include but not limited to bleeding, infection; damage to nerves, vessels, or surrounding structures; wound nonhealing, persistent pain, need for further surgery, scarring, stiffness, incomplete relief of symptoms and risk of anesthesia. DESCRIPTION OF PROCEDURE: The patient was greeted in the preoperative area by the attending surgeon. Correct extremity was marked and consent was confirmed. The patient was brought back to the operating suite where he was placed in supine position on the operating table. He underwent general anesthesia with LMA intubation, after which he was appropriately positioned on the operating table. The lateral post was positioned. An unsterile tourniquet was placed high in the proximal thigh. The right leg was then prepped and draped in usual sterile fashion beginning with chlorhexidine soap, scrub and alcohol wipe and a final prep with ChloraPrep. After appropriate surgical pause indicating site, side, procedure, and administration of antibiotics, the knee was intra-articularly injected with 1% lidocaine with epi. The anterolateral portal was made with sharp #11 blade. There was abundant scar tissue that was present where the previous portal sites were in the prepatellar area. The scope was brought into the joint. It was difficult to move around. Therefore, the anteromedial port was made using an 18 gauge for localization and then the electrocautery device was used to relieve the abundant scar tissue that was anteriorly as well as medially. He had a new plica rubbing against the medial femoral condyle, this was released. The lateral part was released as well as around the patella. After this was done, the ACL was examined and found to be intact. PCL was intact. The medial compartment was examined. There were grade 0 to 1 changes of the medial femoral condyle, but the plateau had some fissuring and had some early arthritic changes grade 1 and 2. There was unstable meniscus tear that radiated to the back. This was debrided using biters and oneil. The knee was then placed in [id number] position and lateral compartment was examined. There was 0 to 1 change in the lateral plateau, grade 0 to 1 of the lateral femoral condyle. There was some fraying and tearing of the root of the meniscus and this was debrided back. The body had some mild fraying also, which was debrided back. The patellofemoral joint was examined. There was some mild chondrosis grade 1. The shaver was used to debrided back. The gutters were examined and found to be intact. Final images were obtained. The wounds were copiously irrigated with sterile saline. Portals were closed with 3-0 nylon. The portals as well as the joint was intra-articularly injected with 0.2% Ropivacaine. Sterile dressings were applied, a Cryo/Cuff. He was awoken from anesthesia and transferred to PACU in stable condition. POSTOPERATIVE PLAN: He will be weightbearing as tolerated, discharged on pain medication and antibiotics due to revision surgery. I will see the patient back in 10 to 14 days. [id number] #: [id number] BILL
== END | disposition home or self-care (01) ==
LOC: OR 10:54
PROVIDERS: ATTEND Orthopaedic Surgery
DX: S83.241A Other tear of medial meniscus, current injury, right knee, initial encounter (principal); S83.281A Other tear of lateral meniscus, current injury, right knee, initial encounter; M24.661 Ankylosis, right knee; X58.XXXA Exposure to other specified factors, initial encounter; Y92.9 Unspecified place or not applicable; F90.9 Attention-deficit hyperactivity disorder, unspecified type; F17.210 Nicotine dependence, cigarettes, uncomplicated
CPT/HCPCS: J0690; J1100; J1885; J2001; J2250; J2405; J2704; J2795; J3010